=== PATIENT | female | born 1960 | race Caucasian/White ===

== ENCOUNTER 2020-06-27 06:47 | Day surgery (SDC) | payer OTHER ==
[2020-06-27] MEDS ORDERED: Propofol 200 MG/20 ML SDV ONE (07:16)
[2020-06-27] MEDS ORDERED: Midazolam 1 MG/ML 2 ML SDV ONE (07:16)
[2020-06-27] MEDS ORDERED: fentaNYL 100 MCG/2 ML SDV ONE (07:16)
[2020-06-27] MEDS ORDERED: Dextrose 5%-Lactated Ringers 1,000 ML IV SCH (07:45)
--- NOTE | 2020-07-03 12:43 | OR ---
DATE OF PROCEDURE: 06/27/2020 SURGEON: Daniel Kraft MD PREOPERATIVE DIAGNOSIS: Personal history of colon polyps and family history of colon carcinoma (mother). POSTOPERATIVE DIAGNOSIS: Recurrent polyps located in the mid sigmoid colon and distal sigmoid colon. OPERATIVE PROCEDURE: Flexible colonoscopy with: 1. Removal of polyp at level of the mid sigmoid colon by cautery snare technique. 2. Removal of polyp in distal sigmoid colon by cold biopsy forceps. ANESTHESIA: IV sedation. INDICATIONS FOR PROCEDURE: The patient presents for followup screening colonoscopy. She has personal history of colon polyps in the past as well as history of her mother having colon carcinoma. Plan is to proceed with a colonoscopy with biopsies and/or polypectomy as indicated. Potential risks including bleeding and perforation were discussed, and the patient wishes to proceed. DETAILS OF PROCEDURE: The patient was taken to the operating room and placed in a left lateral decubitus position. IV sedation was administered, after which the initial digital rectal exam was performed and was unremarkable. Colonoscope was then passed into the rectum with retroflexion revealing uncomplicated hemorrhoidal columns. Scope was eventually passed to the level of the cecum. The prep was quite good with only a small amount of liquid stool present. There were no areas of diverticular disease or colitis. Two small polyps were located; one at 20 cm from the dentate line, i.e., in the mid sigmoid colon and one 15 cm from the dentate line, i.e., in the more distal sigmoid colon. The one at 20 cm was large enough to encircle the space with the cautery snare technique and this was excised by that means and aspirated and sent for histologic evaluation. The second polyp was quite small ranging no more than 2 to 3 mm and was removed with 3 bites of the cold biopsy forceps. This tissue was likewise sent as separate specimen and the procedure was then concluded. Assuming that one or both of the polyps is adenomatous in nature, but benign, a followup colonoscopy would be warranted in 3 years. Daniel Kraft MD /[id number]
== END 2020-06-27 10:00 | disposition home or self-care (01) ==
LOC: JP.SDS 06:47
PROVIDERS: ATTEND Surgery
DX: Z12.11 Encounter for screening for malignant neoplasm of colon (principal); K63.5 Polyp of colon; K64.9 Unspecified hemorrhoids; F17.200 Nicotine dependence, unspecified, uncomplicated; Z80.0 Family history of malignant neoplasm of digestive organs
CPT/HCPCS: 45380; 45385; J2250; J2704; J3010; J7121